=== PATIENT | male | born 1990 | race Caucasian/White ===

== ENCOUNTER 2017-08-19 11:09 | Day surgery (SDC) | payer OTHER ==
[~2017-08-19] VITALS: Ht 167.6 cm; Wt 65.9 kg
[~2017-08-19 11:09] MED LIST: CeFAZolin 2 GM/DEXTROSE 50 ML IV ONE; IBUP-2070 PO; RINGERS SOLUTION,LACTATED 1,000 ML IV ONE
[2017-08-19] MEDS ORDERED: CeFAZolin 2 GM/DEXTROSE 50 ML IV ONE (11:10)
[2017-08-19] MEDS ORDERED: RINGERS SOLUTION,LACTATED 1,000 ML IV ONE (11:10)
[2017-08-19] MEDS ORDERED: LIDOCAINE HCL/PF 2% 5 ML VIAL INJ ONE (12:00)
[2017-08-19] MEDS ORDERED: ONDANSETRON HCL 4 MG/2 ML VIAL IVP ONE (12:00)
[2017-08-19] MEDS ORDERED: DEXAMETHASONE SOD PHOS 4 MG/ML VIAL IVP ONE (12:00)
[2017-08-19] MEDS ORDERED: PROPOFOL 1% 20 ML VIAL IVP ONE (12:00)
[2017-08-19] MEDS ORDERED: FentaNYL CITRATE-PF 100 MCG/2 ML VIAL IVP ONE (12:00)
[2017-08-19] MEDS ORDERED: KETOROLAC TROMETHAMINE 60 MG/2 ML VIAL IM ONE (12:00)
[2017-08-19] MEDS ORDERED: MIDAZOLAM HCL 2 MG/2 ML VIAL IVP ONE (12:00)
[2017-08-19] MEDS ORDERED: BUPIVACAINE HCL/PF 0.5% 30 ML VIAL ONE (12:12)
[2017-08-19] MEDS ORDERED: LIDOCAINE HCL/PF 1% 30 ML VIAL ONE (12:12)
[2017-08-19] MEDS ORDERED: MEPERIDINE-PF 25 MG/ML SYRINGE IVP PRN (12:45)
[2017-08-19] MEDS ORDERED: FentaNYL CITRATE-PF 100 MCG/2 ML VIAL IVP PRN (12:45)
[2017-08-19] MEDS ORDERED: HYDROmorphone 2 MG/ML SYRINGE IVP PRN (12:45)
[2017-08-19] MEDS ORDERED: RINGERS SOLUTION,LACTATED 500 ML IV ONE (15:12)
[2017-08-19] MEDS ORDERED: OXYGEN THERAPY IH SCH (20:00)
== END 2017-08-19 16:25 | disposition home or self-care (01) ==
LOC: SURGERY 11:09
PROVIDERS: ATTEND Urology
DX: N47.1 Phimosis (principal); N48.1 Balanitis; G89.29 Other chronic pain; K21.9 Gastro-esophageal reflux disease without esophagitis; Z72.89 Other problems related to lifestyle; Z90.89 Acquired absence of other organs; Z79.1 Long term (current) use of non-steroidal anti-inflammatories (NSAID); Z98.890 Other specified postprocedural states; Z88.5 Allergy status to narcotic agent; Z91.018 Allergy to other foods; Z91.09 Other allergy status, other than to drugs and biological substances
CPT/HCPCS: 54150; 88304; J0690; J1100; J1885; J2250; J2405; J2704; J3010; J3490 ×3; J7120 ×2